=== PATIENT | female | born 1950 | race Caucasian/White ===

== ENCOUNTER 2023-06-21 07:07 | Day surgery (SDC) | payer OTHER ==
[~2023-06-21] VITALS: Ht 154.9 cm; Wt 39.9 kg
[2023-06-21] VITALS (7 sets, daily range): BP systolic 94–131; BP diastolic 48–69; PULSE 52–60; RESP 12–18; O2SAT 95–97
[~2023-06-21 07:07] MED LIST: ALBU108A14 IN; AMLO1TAB22 PO; ASPI-543 PO; HYDR12.59 PO; IBUP-1456 PO; METO-158 PO; NITR0.4S29 SL; ONDA-155 PO
[2023-06-21] MEDS ORDERED: ANGIOMAX 250 MG VIAL IV ONE (10:23)
[2023-06-21] MEDS ORDERED: HEPARIN SODIUM (PORCINE) 5000 UNITS/ML 1ML VIAL ONE (10:23)
[2023-06-21] MEDS ORDERED: fentaNYL CITRATE 100 MCG/2 ML VL ONE (10:23)
[2023-06-21] MEDS ORDERED: VERAPAMIL 2.5MG/ML INJ 2ML VIAL IV ONE (10:23)
[2023-06-21] MEDS ORDERED: LIDOCAINE 2%HCL (LOCAL ANESTH.) INJ 20ML MDV ONE (10:24)
[2023-06-21] MEDS ORDERED: MIDAZOLAM HCL 2MG/2ML 2ml VIAL (1mg/ml) ONE (10:24)
[2023-06-21] MEDS ORDERED: SODIUM CHL 0.9% 0 ML ONE (10:24)
[2023-06-21] MEDS ORDERED: IODIXANOL 320MG/ML 100ML BTL IV ONE ×2 (10:25→10:36)
== END 2023-06-21 13:16 | disposition home or self-care (01) ==
LOC: CATH 07:07
PROVIDERS: ATTEND Internal Medicine
DX: R07.89 Other chest pain (principal); R94.39 Abnormal result of other cardiovascular function study; I10 Essential (primary) hypertension; Z79.899 Other long term (current) drug therapy; Z98.890 Other specified postprocedural states; E78.5 Hyperlipidemia, unspecified
CPT/HCPCS: 93458; C1725; C1894; J1644; J2250; J3010; Q9967; 99152